=== PATIENT | female | born 1955 | race Caucasian/White ===

== ENCOUNTER 2020-01-17 13:03 | Inpatient (IN) ==
--- NOTE | 2020-01-17 13:14 | Emergency Department Note ---
History of Present Illness General Chief Complaint: Chest Pain Stated Complaint: CHEST PAIN INTO BACK BETWEEN SHOULDERS Time Seen by Provider: 01/17/20 13:08 Source: patient Mode of arrival: ambulatory Limitations: no limitations History of Present Illness Provider Complaint: chest pain Duration: constant Onset: during rest Pain Location: substernal Pain Radiation: back Severity: moderate This is a 54-year-old female who presents to the ED with a chief complaint of a left-sided chest pain that awoke her early this morning around 6 or 7 AM. She describes it as a pressure in her chest that radiates into her back with associated nausea. Denies shortness of breath. She has a history of asthma and is a smoker and history of DVT. The patient states that nothing seems to make it better or worse. She has not taken anything for the symptoms. Current symptoms are moderate. Home Medications Home Medications Medication Instructions Recorded Confirmed Type albuterol sulfate 90 mcg/actuation 2 puffs INH QID PRN #6.7 gm 12/31/19 01/17/20 Rx aerosol inhaler rivaroxaban [Xarelto] 15 ea PO DAILY 01/17/20 01/17/20 History Allergies Allergy/AdvReac Type Severity Reaction Status Date / Time No Known Drug Allergies Allergy Unknown Unverified 01/17/20 13:53 Past Med/Surg History Medical History Asthma Deep vein thrombosis (DVT) of right lower extremity Depression Elevated blood pressure reading in office without diagnosis of hypertension Incidental pulmonary nodule, > 3mm and < 8mm (Inactive) Tobacco abuse Surgical History History of tubal ligation 1980. Family History Father Alcohol abuse Lung cancer Mother Cardiovascular disorder Denies family history of Ovarian cancer Prostate cancer Breast cancer Colorectal cancer Social History Preferred Language: German Communication Ability: Effective Visual Impairment: No Limitations Hearing Ability: Normal Beliefs That Will Affect Care: None marital status: / Current Living Situation: Other Current Living Situation Comment: friend current occupational status: unemployed Feels Safe at Home: Yes Smoking Status: Current every day smoker Tobacco Type: cigarettes ; Age Started Using Tobacco: 21 ; Cigarettes Per Day: 1/2 PPD ; Second Hand Exposure: No ; Hx Alcohol Use: Yes Alcohol Intake Frequency: Rarely Hx Substance Use: No Childhood Exposure to Second-Hand Smoke: No Diet Comment: Well balanced diet. caffeine: Yes (Coffee x 2-4 per day. Soda x 1 per day.) during the past year weight has: increased > 10 lbs Dental Care, Regularly: No Physical Activity Frequency: Other Physical Activity Frequency Comment: Limited by physical condition Seatbelt Use: never Sunscreen Use: No Review of Systems A total of 10 systems reviewed and were otherwise negative Physical Exam Vital Signs Vital Signs - 24 hr 01/17/20 13:07 01/17/20 13:19 01/17/20 13:23 Temperature 36.6 C Temperature Source Oral Pulse Rate 73 68 63 Pulse Rhythm Regular Pulse Strength Normal Respiratory Rate 22 20 18 Respiratory Effort / Characteristics Non-Labored Spontaneous Respiratory Depth Normal Respiratory Pattern Regular Blood Pressure 166/86 H 202/102 H 185/95 H Blood Pressure Mean 112 123 107 Blood Pressure Position Sitting Pulse Oximetry 100 Oxygen Delivery Method Room Air Oxygen Flow Rate Sepsis Recent Fever Within 48 Hours No Sepsis New/Unexplained Change in Mental Status No Sepsis Action Taken by Nursing No Action Required 01/17/20 13:27 01/17/20 13:31 01/17/20 13:40 Temperature Temperature Source Pulse Rate 64 58 L Pulse Rhythm Pulse Strength Respiratory Rate 18 17 Respiratory Effort / Characteristics Respiratory Depth Respiratory Pattern Blood Pressure 183/93 H Blood Pressure Mean 124 Blood Pressure Position Pulse Oximetry Oxygen Delivery Method Room Air Oxygen Flow Rate 99 Sepsis Recent Fever Within 48 Hours Sepsis New/Unexplained Change in Mental Status Sepsis Action Taken by Nursing 01/17/20 13:50 01/17/20 14:00 Temperature Temperature Source Pulse Rate 61 57 L Pulse Rhythm Pulse Strength Respiratory Rate 15 18 Respiratory Effort / Characteristics Respiratory Depth Respiratory Pattern Blood Pressure 169/87 H Blood Pressure Mean 100 Blood Pressure Position Pulse Oximetry Oxygen Delivery Method Oxygen Flow Rate Sepsis Recent Fever Within 48 Hours Sepsis New/Unexplained Change in Mental Status Sepsis Action Taken by Nursing CONSTITUTIONAL/VITAL SIGNS: Reviewed / noted above. GENERAL: Non-toxic in appearance. INTEGUMENTARY: Warm, dry, and [place]. HEAD: Normocephalic. EYES: without scleral icterus or trauma. ENT/OROPHARYNX: clear and moist. LYMPHADENOPATHY/NECK: Is supple without lymphadenopathy or meningismus. RESPIRATORY: Lungs clear and equal. CARDIOVASCULAR: Regular rate and rhythm. GI/ABDOMEN: Soft and nontender. No organomegaly or pulsatile mass. No rebound or guarding. Normal bowel sounds. EXTREMITIES: Warm and well perfused. BACK: No CVA tenderness. NEUROLOGICAL: Intact without focal deficits. PSYCHIATRIC: normal affect. MUSCULOSKELETAL: Normally developed with good muscle tone. TRIAGE NURSING DOCUMENTATION REVIEWED. Course Administered Medications Discontinued Medications Sodium Chloride (Nss) 500 mls @ 999 mls/hr IV .Q31M [facility] Stop: 01/17/20 13:45 Last Admin: 01/17/20 13:28 Dose: 999 mls/hr Documented by: [id number] Medical Decision Making Differential Diagnosis The differential that was considered includes acute myocardial infarction, acute coronary syndrome, myocarditis, pericarditis, pericardial effusions /tamponade, esophageal perforation, thoracic aortic dissection, pulmonary embolism, pneumonia, pneumothorax, pancreatitis, shingles, acute cholecystitis, perforated abdominal viscus. Medical Records Attestation: I reviewed the patient's medical records. Home Medications Current Medication List: was personally reviewed by me Laboratory Data Attestation: I reviewed the patient's lab results. Result diagrams: 01/17/20 13:20 01/17/20 13:20 Labs: Lab Results 01/17/20 01/17/20 01/17/20 Range/Units 13:20 13:20 13:20 WBC 6.64 (4.8-10.8) K/uL RBC 5.13 (4.2-5.4) M/uL Hgb 14.2 (12.0-16.0) g/dL Hct 43.5 (37-47) % MCV 84.8 (80-100) fL MCH 27.7 (25-34) pg MCHC 32.6 (32-36) g/dL RDW Std Deviation 43.3 (36.4-46.3) fL RDW Coeff of Dave 14.0 (11.5-14.5) % Plt Count 233 (130-400) K/uL MPV 9.3 (7.4-10.4) fL Immature Gran % (Auto) 0.2 % Neut % (Auto) 63.9 % Lymph % (Auto) 29.8 % Wilson % (Auto) 3.6 % Eos % (Auto) 2.0 % Baso % (Auto) 0.5 % Immature Gran # (Auto) 0.01 (0.00-0.02) K/uL Neut # (Auto) 4.25 (1.4-6.5) K/uL Lymph # (Auto) 1.98 (1.2-3.4) K/uL Wilson # (Auto) 0.24 (0.11-0.59) K/uL Eos # (Auto) 0.13 (0-0.5) K/uL Baso # (Auto) 0.03 (0-0.2) K/uL PT 11.4 (9.0-12.0) Seconds INR 1.1 (0.9-1.1) APTT 29.6 (21.0-31.0) Seconds PTT Ratio 1.1 D-Dimer < 190 (0-500) ug/L FEU Sodium 139 (136-145) mmol/L Potassium 4.4 (3.5-5.1) mmol/L Chloride 108 H (98-107) mmol/L Carbon Dioxide 26 (21-32) mmol/L Anion Gap 5.0 (3-11) BUN 14 (7-18) mg/dl Creatinine 0.75 (0.6-1.2) mg/dl Est Cr Clr Drug Dosing 60.7 ml/min Est GFR ( Amer) 98.3 Est GFR (Non-Af Amer) 84.8 BUN/Creatinine Ratio 18.4 (10-20) Glucose 100 H (70-99) mg/dl Calcium 9.1 (8.5-10.1) mg/dl Total Bilirubin 0.4 (0.2-1) mg/dl AST 18 (15-37) U/L ALT 22 (12-78) U/L Alkaline Phosphatase 64 (45-117) U/L Troponin I 0.382 H* (0-0.045) ng/ml Total Protein 7.4 (6.4-8.2) gm/dl Albumin 3.8 (3.4-5.0) gm/dl Globulin 3.6 (2.5-4.0) gm/dl Albumin/Globulin Ratio 1.1 (0.9-2) Lipase 101 (73-393) U/L Imaging Data Chest x-ray: Radiologist's impression: XR chest 1V portable CLINICAL HISTORY: Chest Pain dyspnea COMPARISON STUDY: No previous studies for comparison. FINDINGS: The bones soft tissues and hemidiaphragms are normal. The cardi omediastinal silhouette is normal. The lungs are clear. The pulmonary vasculature is normal. Minimal atelectasis left base IMPRESSION: Negative chest. ECG Data Attestation: I personally reviewed and interpreted this ECG as follows: Indication: chest pain and SOB/dyspnea Rate (beats per minute): 73 Rhythm: normal sinus Findings: no PVC, no ST elevation and no prolonged QT Blood Pressure Blood Pressure Findings: Elevated blood pressure Blood Pressure Disposition: further management by hospitalist KARLI Narrative Cardiac monitoring: An order was placed for continuous cardiac monitoring. The monitor shows a rate of 70 with normal sinus rhythm. This is a 54-year-old female who presents to the ED with a chief complaint of a left-sided chest pain that awoke her early this morning around 6 or 7 AM. She describes it as a pressure in her chest that radiates into her back with associated nausea. Denies shortness of breath. She has a history of asthma and is a smoker and history of DVT. The patient states that nothing seems to make it better or worse. She has not taken anything for the symptoms. Current symptoms are moderate. The patient's vital signs reveal hypertension. Her physical exam was normal. A twelve-lead EKG shows normal sinus rhythm at a rate of 73 without acute injury or ectopy. The patient's CBC and chemistry panel was normal. A chest x-ray did not show acute process. Troponin is elevated 0.382. The patient was given aspirin p.o., Lovenox subcu, nitro sublingual and Nitropaste. She will be seen by the hospitalist for further evaluation and care. Impression & Plan Non-ST elevation (NSTEMI) myocardial infarction Discharge Plan Visit Data Chief Complaint: Chest Pain Stated Complaint: CHEST PAIN INTO BACK BETWEEN SHOULDERS ED Provider: Fantasma Larose Discharge Problem: Non-ST elevation (NSTEMI) myocardial infarction Patient Disposition: Being Evaluated by Hospitalist Forms Stand Alone Forms: [employer] Prescriptions Prescriptions: No Action albuterol sulfate [Ventolin HFA] 90 mcg/actuation HFA aerosol inhaler 2 puffs INH QID PRN (Reason: shortness of breath or wheezing) Qty: 6.7 RF: 0 Xarelto 15 mg (42)- 20 mg (9) tablets,dose pack 15 ea PO DAILY RF: 0 Referrals Referrals: Erma Dey DO [Primary Care Provider] -
[2020-01-17] MEDS ORDERED: SODIUM CHLORIDE 0.9% 500 ML IV SCH (13:15)
[2020-01-17 13:40] LABS: Basophils # (auto) 0.03 K/uL (0-0.2); Basophils % (auto) 0.5 %; Eosinophils # (auto) 0.13 K/uL (0-0.5); Hematocrit (blood only) 43.5 % (37-47); Hemoglobin 14.2 g/dL (12.0-16.0); Immature Granulocytes # (auto) 0.01 K/uL (0.00-0.02); Immature Granulocytes % (auto) 0.2 %; Lymphocytes # (auto) 1.98 K/uL (1.2-3.4); Lymphocytes % (auto) 29.8 %; Mean Corpuscular Hemoglobin 27.7 pg (25-34); Mean Corpuscular Hgb Conc 32.6 g/dL (32-36); Mean Corpuscular Volume 84.8 fL (80-100); Mean Platelet Volume 9.3 fL (7.4-10.4); Monocytes # (auto) 0.24 K/uL (0.11-0.59); Monocytes % (auto) 3.6 %; Neutrophils # (auto) 4.25 K/uL (1.4-6.5); Neutrophils % (auto) 63.9 %; Platelet Count 233 K/uL (130-400); RDW Standard Deviation 43.3 fL (36.4-46.3); Red Blood Count 5.13 M/uL (4.2-5.4); White Blood Count 6.64 K/uL (4.8-10.8)
[2020-01-17 13:53] LABS: D Dimer < 190 ug/L FEU (0-500); INR 1.1 (0.9-1.1); Partial Thromboplastin Ratio 1.1; Partial Thromboplastin Time 29.6 Seconds (21.0-31.0); Prothrombin Time 11.4 Seconds (9.0-12.0)
[2020-01-17 13:57] LABS: Albumin Level 3.8 gm/dl (3.4-5.0); BUN Creatinine Ratio 18.4 (10-20); Calcium 9.1 mg/dl (8.5-10.1); Creatinine Clr Calc Pharmacy 60.7 ml/min; Est GFR (African American) 98.3; Est GFR (Non-African American) 84.8; Potassium 4.4 mmol/L (3.5-5.1)
--- NOTE | 2020-01-17 14:00 | XRay Report ---
XR chest 1V portable CLINICAL HISTORY: Chest Pain dyspnea COMPARISON STUDY: No previous studies for comparison. FINDINGS: The bones soft tissues and hemidiaphragms are normal. The cardiomediastinal silhouette is n ormal. The lungs are clear. The pulmonary vasculature is normal. Minimal atelectasis left base IMPRESSION: Negative chest. ACT 112: Negative or not required by law. The above report was generated using voice recognition software. It may contain grammatical, syntax or spelling errors. Electronically signed by: Stepan Miranda M.D. 01/17/2020 1:59 PM
[2020-01-17 14:08] LABS: Albumin Globulin Ratio 1.1 (0.9-2); Bilirubin,Total 0.4 mg/dl (0.2-1); Globulin 3.6 gm/dl (2.5-4.0); Total Protein 7.4 gm/dl (6.4-8.2); Troponin I 0.382 ng/ml (0-0.045)
[2020-01-17] MEDS ORDERED: ASPIRIN 81 MG CHEW PO STA (14:11)
[2020-01-17] MEDS ORDERED: ENOXAPARIN INJ 60 MG/0.6 ML SYR SQ ONE (14:11)
[2020-01-17] MEDS ORDERED: NITROGLYCERIN SL 0.4 MG/TAB TAB SL STA (14:13)
[2020-01-17] MEDS ORDERED: NITROGLYCERIN 2% OINTMENT 30GM TUBE EXT ONE (14:13)
--- NOTE | 2020-01-17 15:08 | History & Physical Report ---
Date of Service January 17, 2020 Assessment & Plan (1) Non-ST elevation (NSTEMI) myocardial infarction: With elevated troponin and abnormal EKG without comparison, suspect patient may have had a non-STEMI. Patient will be admitted to a telemetry bed. Full dose aspirin was given the emergency room. Will start heparin drip. Patient was given Nitropaste. Beta blockers relatively contraindicated secondary to low pulse. Continue to trend troponins. Check 2D echo. We will ask cardiology to evaluate for further recommendations, consideration to cardiac cath. Will make NPO tonight. (2) Deep vein thrombosis (DVT) of right lower extremity: I did review Dopplers, patient has a chronic popliteal DVT along with more distal thrombus. Because of this, there is no need for further full dose anticoagulation for this indication. However, patient is being placed on heparin drip for non-STEMI as noted above. (3) HTN (hypertension): Blood pressure was quite high but this seems to have resolved without in tervention. Continue to monitor, consider further treatment if blood pressure becomes elevated again. (4) Tobacco abuse: Patient will require a discussion of smoking cessation prior to her discharge. History of Present Illness Primary Care Provider: Erma Dey DO This is a 64-year-old female with past medical history of DVT that presents today complaining of chest pain. Patient is accompanied by her and she is a good historian. Patient tells me she was doing fine up until this morning. She woke up around 930 and had a significant crushing chest pain. She said this started in the left side of her chest but moved more substernal. Denies shortness of breath or dyspnea. It radiated to her center back. At the time she qualified it as a 9 out of 10. She denied any abdominal pain with this. There was some mild shortness of breath which was nonpleuritic. She feels the pain has improved significantly since her presentation the emergency room and is now only very minimal. Of note, the patient's blood pressure was extremely elevated during presentation to as high as 202/102. On my evaluation she was 146/80. Also of note, patient had a recent diagnosis of right lower extremity DVT. She had been prescribed Xarelto but was noncompliant with this for period of time secondary to insurance issues. She tells me she has been taking his medication again for the past 2 weeks and took her last dose yesterday morning. Allergies Allergy/AdvReac Type Severity Reaction Status Date / Time No Known Drug Allergies Allergy Unknown Unverified 01/17/20 13:53 Home Medications Home Medications Medication Instructions Recorded Confirmed Type albuterol sulfate 90 mcg/actuation 2 puffs INH QID PRN #6.7 gm 12/31/19 01/17/20 Rx aerosol inhaler rivaroxaban [Xarelto] 15 ea PO DAILY 01/17/20 01/17/20 History Past Med/Surg History Medical History Asthma Deep vein thrombosis (DVT) of right lower extremity Depression Elevated blood pressure reading in office without diagnosis of hypertension Incidental pulmonary nodule, > 3mm and < 8mm (Inactive) Tobacco abuse Surgical History History of tubal ligation 1980. Family History Father Alcohol abuse Lung cancer Mother Cardiovascular disorder Denies family history of Ovarian cancer Prostate cancer Breast cancer Colorectal cancer Social History Preferred Language: Welsh Communication Ability: Effective Visual Impairment: No Limitations Hearing Ability: Normal Beliefs That Will Affect Care: None marital status: / Current Living Situation: Significant Other Current Living Situation Comment: SIGNIFICANT OTHER OF 17 YEARS current occupational status: unemployed Other Information That Helps Us Care for You: No Feels Safe at Home: Yes Safety Concerns: Feels Safe At This Time Smoking Status: Current every day smoker Tobacco Type: cigarettes ; Age Started Using Tobacco: 21 ; Cigarettes Per Day: 20+ ; Second Hand Exposure: No ; Hx Alcohol Use: Yes Alcohol type: beer Alcohol Intake Frequency: Rarely Hx Substance Use: No Childhood Exposure to Second-Hand Smoke: No Diet Comment: Well balanced diet. caffeine: Yes (Coffee x 2-4 per day. Soda x 1 per day.) during the past year weight has: increased > 10 lbs Dental Care, Regularly: No Physical Activity Frequency: Other Physical Activity Frequency Comment: Limited by physical condition Seatbelt Use: never Sunscreen Use: No Review of Systems Constitutional: no fever, no chills, no weakness, no weight loss and no weight gain Eyes: as per Subjective / HPI Respiratory: no cough, no chest congestion, no dyspnea, no dyspnea on exertion and no pain on inspiration Cardiovascular: + chest pain at rest; no orthopnea, no palpitations, no lightheadedness, no syncope, no edema and no calf pain Gastrointestinal: no abdominal pain, no nausea, no vomiting, no constipation and no diarrhea/loose stools Genitourinary: no dysuria, no difficulty urinating, no urinary frequency, no urinary hesitancy, no urinary urgency and no flank pain Musculoskeletal: + back pain; no neck pain, no joint pain, no stiffness and no myalgia Integumentary: no rash Neurologic: no gait abnormality, no unsteadiness, no falls and no generalized weakness Physical Exam Constitutional: + thin and cooperative; no acute distress Neck: trachea midline, no thyromegaly Respiratory: normal respiratory effort Auscultation: lungs clear to auscultation bilaterally; no crackles, no rales, no rhonchi and no wheezes Cardiovascular: Rate/Rhythm: regular rate and regular rhythm Heart Sounds: normal S1 and normal S2; no murmur Vessels: no JVD and no carotid bruit Extremities: no edema Gastrointestinal (Abdomen): Inspection/Auscultation: abdomen normal to inspection Percussion/Palpation: abdomen soft; abdomen nontender, no guarding, abdomen not rigid and no hepatosplenomegaly Musculoskeletal: no cyanosis or clubbing, extremities motor strength 5/5 Skin: no rashes, warm and dry Results & Data Vital Signs (Past 12 Hours) Vital Signs Temp Pulse Resp BP Pulse Ox 01/17/20 14:30 81 19 148/93 H 97 01/17/20 14:00 57 L 18 169/87 H 01/17/20 13:50 61 15 01/17/20 13:40 58 L 17 01/17/20 13:31 64 18 183/93 H 01/17/20 13:23 63 18 185/95 H 01/17/20 13:19 68 20 202/102 H 01/17/20 13:07 36.6 C 73 22 166/86 H 100 Laboratory Results WBCs of 6.6, hemoglobin of 14.2, hematocrit of 43.5, platelet 233. INR is 1.1. Sodium of 139, potassium of 4.4, carbon dioxide of 26, BUN 14 with creatinine 0.75 which is her baseline. Glucose 100. Troponin is 0.382. Lipase 101. EKG reviewed shows normal sinus rhythm with a rate of [address] bpm. There are no ST-T wave changes. Q waves noted in 2 3 aVF. Diagnostic Findings XR chest 1V portable CLINICAL HISTORY: Chest Pain dyspnea COMPARISON STUDY: No previous studies for comparison. FINDINGS: The bones soft tissues and hemidiaphragms are normal. The cardiomediastinal silhouette is normal. The lungs are clear. The pulmonary vasculature is normal. Minimal atelectasis left base IMPRESSION: Negative chest. --- RIGHT LOWER EXTREMITY VENOUS DOPPLER HISTORY: Hx of DVT february 2019 in right leg COMPARISON STUDY: None. FINDINGS: Nearly occlusive thrombus seen within the right popliteal vein as well as the posterior tibial and peroneal veins. The right common femoral and superficial femoral veins are patent. IMPRESSION: Right lower extremity DVT as described above. --- US venous doppler LE BI HISTORY: Pain. Edema. I82.401 Acute embolism and thrombosis of unspecified deep... COMPARISON STUDY: 05/05/2019 FINDINGS: Nonocclusive thrombus within the distal right popliteal vein. This is similar as compared to the prior study. There is also partial involvement of the peroneal and posterior tibial veins. These findings are considered chronic. No evidence for new or interval process. IMPRESSION: 1. No evidence for acute deep venous thrombosis. 2. Chronic deep venous thrombosis as described similar as compared to the prior exam. PG Care Time/CCT Total # of Minutes Spent Total Time Spent with Patient: Total time spent is greater than 50% in coordination of care (as documented) at patient's floor/unit and/or counseling patient: Coding Level of Care Code 09485 Initial Inpt Care Lvl 3 Diagnoses Non-ST elevation (NSTEMI) myocardial infarction I21.4 Deep vein thrombosis (DVT) of right lower extremity I82.401 Affected thrombotic vein of extremity: unspecified vein of extremity Chronicity: unspecified HTN (hypertension) I10 Tobacco abuse Z72.0 (1) Deep vein thrombosis (DVT) of right lower extremity Affected thrombotic vein of extremity: unspecified vein of extremity Chronicity: unspecified Qualified Code(s): I82.401 - Acute embolism and t hrombosis of unspecified deep veins of right lower extremity
[2020-01-17] MEDS ORDERED: ALBUTEROL HFA 8 GM INHALER INH PRN (16:32)
[2020-01-17] MEDS ORDERED: ACETAMINOPHEN 325 MG TAB PO PRN (16:32)
--- NOTE | 2020-01-17 17:57 | Electrocardiogram Report ---
Test Reason : Blood Pressure : / mmHG Vent. Rate : 073 BPM Atrial Rate : 073 BPM P-R Int : 156 ms QRS Dur : 064 ms QT Int : 386 ms P-R-T Axes : 078 066 078 degrees QTc Int : 425 ms Normal sinus rhythm Left atrial enlargement Poor R wave progression, consider anterior [place] vs. lead placement vs. LVH Abnormal ECG When compared with ECG of 05-MAY-2019 00:55, Anterior infarct is now Present Confirmed by Jean-Pierre Farrar ([id number]) on 01/17/2020 5:57:17 PM Referred By: REFERRED SELF Confirmed By:Jean-Pierre Farrar
[2020-01-18] MEDS: HEPARIN SODIUM/DEXTROSE 25,000 UNITS/500 ML BAG IV SCH (02:00)
[2020-01-18] MEDS ORDERED: HEPARIN IV BOLUS 4,000 UNITS in SYRINGE 0 ML IV ONE (02:00)
[2020-01-18 08:42] LABS: Partial Thromboplastin Ratio 4.8
[2020-01-18] MEDS ORDERED: ASPIRIN 325 MG ECTAB PO SCH (09:00)
[2020-01-18] MEDS ORDERED: Nursing to Pharmacy Communication ONE (09:04)
[2020-01-18 10:27] LABS: Partial Thromboplastin Ratio > 5.0
[2020-01-18 10:39] LABS: Partial Thromboplastin Time > 139.0 Seconds (21.0-31.0)
[2020-01-18 11:31] LABS: Partial Thromboplastin Ratio 2.8
[2020-01-18 11:37] LABS: Partial Thromboplastin Time 78.4 Seconds (21.0-31.0)
--- NOTE | 2020-01-18 12:19 | XCELERA ---
[id number] \\[email or web address]\[email or web address]\[id number]
--- NOTE | 2020-01-18 12:21 | Electrocardiogram Report ---
Test Reason : Blood Pressure : / mmHG Vent. Rate : 068 BPM Atrial Rate : 068 BPM P-R Int : 166 ms QRS Dur : 064 ms QT Int : 406 ms P-R-T Axes : 076 056 072 degrees QTc Int : 431 ms Normal sinus rhythm Possible Anterior infarct , age undetermined (cited on or before 17-JAN-2020) Abnormal ECG When compared with ECG of 17-JAN-2020 13:16, No significant change was found Confirmed by Jean-Pierre Farrra ([id number]) on 01/18/2020 12:21:15 PM Referred By: REFERRED SELF Confirmed By:Jean-Pierre Farrar
--- NOTE | 2020-01-18 15:30 | Cardiology Consultation ---
Date of Consultation January 18, 2020 Assessment & Plan (1) Non-ST elevation (NSTEMI) myocardial infarction: (2) HTN (hypertension): (3) Tobacco abuse: (4) Chronic deep vein thrombosis (DVT): Patient with symptoms consistent with acute coronary syndrome, demonstrating elevated enzymes with peak and decay, nonspecific ECG findings (loss of R waves in V2 and V3 without ST abnormalities). No wall motion abnormalities on echo, suggesting limited area of involvement in her apparent non-ST elevation myocardial infarction. Although pulmonary embolism could certainly have been a consideration, her venous findings appear chronic and her d-dimer was negative. Agree with heparinization and aspirin, obtain baseline lipid profile and initiate statin, holding on beta-kimberly with her relative bradycardia at rest and normotensive BP. Patient strongly counseled on the benefits of tobacco cessation in this context. Case discussed with Dr. Dao and Dr. Desai. History of Present Illness Reason for Consultation: NSTEMI Requesting Physician: Paul Aguilera DO Attending Physician: Marco Lee History of Present Illness 64-year-old woman with history of DVT, longstanding tobacco use, otherwise generally healthy, admitted 01/17/2020 with chest pain and found to have peak and decay pattern of elevated troponin (peak 0.766) without diagnostic ECG changes (did have loss of R waves in V2 and V3 compared with the prior study, no acute ST abnormalities). She noted some transient chest discomfort Sunday morning but felt it was not significant. Sunday morning she had more severe pain lasting from 9:30 in the morning till just around the time she arrived here at noon. No chest pain since. Her pain was anterior and nonradiating, non-positional, and nonpleuritic. No associated symptoms. At the time of my evaluation this morning, she noted a vague sense of fatigue, but had no other complaints. Allergies Allergy/AdvReac Type Severity Reaction Status Date / Time No Known Drug Allergies Allergy Unknown Unverified 01/17/20 13:53 Home Medications Home Medications Medication Instructions Recorded Confirmed Type albuterol sulfate 90 mcg/actuation 2 puffs INH QID PRN #6.7 gm 12/31/19 01/17/20 Rx aerosol inhaler rivaroxaban [Xarelto] 15 ea PO DAILY 01/17/20 01/17/20 History Patient History Medical History Asthma Deep vein thrombosis (DVT) of right lower extremity Depression Elevated blood pressure reading in office without diagnosis of hypertension Incidental pulmonary nodule, > 3mm and < 8mm (Inactive) Tobacco abuse Surgical History History of tubal ligation 1980. Family History Alcohol abuse Father Cardiovascular disorder Mother Lung cancer Father Denies family history of Ovarian cancer Prostate cancer Breast cancer Colorectal cancer Social History Preferred Language: Wolof Communication Ability: Effective Visual Impairment: No Limitations Hearing Ability: Normal Beliefs That Will Affect Care: None marital status: / Current Living Situation: Significant Other Current Living Situation Comment: SIGNIFICANT OTHER OF 17 YEARS current occupational status: unemployed Other Information That Helps Us Care for You: No Feels Safe at Home: Yes Safety Concerns: Feels Safe At This Time Smoking Status: Current every day smoker Tobacco Type: cigarettes ; Age Started Using Tobacco: 21 ; Cigarettes Per Day: 20+ ; Second Hand Exposure: No ; Hx Alcohol Use: Yes Alcohol type: beer Alcohol Intake Frequency: Rarely Hx Substance Use: No Childhood Exposure to Second-Hand Smoke: No Diet Comment: Well balanced diet. caffeine: Yes (Coffee x 2-4 per day. Soda x 1 per day.) during the past year weight has: increased > 10 lbs Dental Care, Regularly: No Physical Activity Frequency: Other Physical Activity Frequency Comment: Limited by physical condition Seatbelt Use: never Sunscreen Use: No Review of Systems Constitutional: + fatigue; no fever, no chills, no weight loss and no weight gain Eyes: no problem reported Ear, Nose, Mouth, Throat: no problem reported Respiratory: + cough (Chronic nonproductive smoker's cough.); no dyspnea Cardiovascular: as per Subjective / HPI Gastrointestinal: no abdominal pain and no change in stools Genitourinary: no problem reported Musculoskeletal: no myalgia Integumentary: no rash and no new lesions Neurologic: no falls and no syncope Psychiatric: no problem reported Hematologic / Lymphatic: no easy bleeding and no easy bruising Physical Exam 2 Physical Exam: Middle-aged white female with normal habitus in no distress. Skin with no ecchymoses or generalized lesions. HEENT: Unremarkable neck: Normal jugular venous pulse, no carotid bruits. Lungs: Mildly decreased breath sounds but clear. Cardiac: Regular rhythm normal S1, physiologically split S2, no murmur, rub, or gallop. Abdomen: Soft nontender with no organomegaly or masses. Extremities: no edema, pulses brisk. Neurologic: Normal affect nonfocal. Results & Data ([facility]) Vital Signs (Past 12 Hours) Vital Signs Temp Pulse Pulse Resp BP BP Pulse Ox 01/18/20 11:40 98.2 F 62 18 151/92 H 95 01/18/20 08:00 53 L 01/18/20 07:27 98.1 F 56 L 16 90/52 L 91 Laboratory Results 01/17/20 13:20 D-Dimer < 190 01/17/20 01/17/20 01/18/20 13:20 16:46 00:04 Potassium 4.4 Creatinine 0.75 Troponin I 0.382 H* 0.766 H* 0.426 H* 01/18/20 08:01 Potassium Creatinine Troponin I 0.250 H* Diagnostic Findings Initial ECG showed sinus rhythm with poor R wave progression (minimal R waves in V2 and V3), compared with ECG of 05/05/2019, loss of anterior R waves noted. No ST deviation seen. A second ECG yesterday was similar, no ECG from today. Echocardiogram today showed hyperdynamic left ventricle (EF greater than 70%) with no regional wall motion abnormalities. Trace tricuspid regurgitation with mild pulmonary hypertension. Venous Doppler showed nonocclusive thrombus within the distal right popliteal vein similar to a study from May 2019 and felt to be chronic. Chest x-ray was negative. PG Care Time/CCT Total # of Minutes Spent Total Time Spent with Patient: Total time spent is greater than 50% in coordination of care (as documented) at patient's floor/unit and/or counseling patient: Coding Level of Care Code 11259 Inpt Consult Level 4 Diagnoses Non-ST elevation (NSTEMI) myocardial infarction I21.4 HTN (hypertension) I10 Tobacco abuse Z72.0 Chronic deep vein thrombosis (DVT) I82.509
[2020-01-18 19:39] LABS: Partial Thromboplastin Ratio 2.6
[2020-01-18 20:01] LABS: Partial Thromboplastin Time 71.8 Seconds (21.0-31.0)
--- NOTE | 2020-01-18 21:06 | Hospitalist Progress Note ---
Date of Service January 18, 2020 Assessment & Plan (1) Non-ST elevation (NSTEMI) myocardial infarction: Symptoms, troponin elevation, etc all c/w NSTEMI. Continue heparin drip. Unable to use beta blockers due to bradycardia. Check lipids in am; in meantime start lipitor 40mg daily. Cont asa 81mg daily - can cut dose back from 325mg. Troponin has peaked and already fallen. Echo with preserved EF. NPO after MN tonight for cath in am. Appreciate cardiology consultation. (2) Deep vein thrombosis (DVT) of right lower extremity: Unprovoked DVT - initial dx 05/05/2019. CTA chest w/o PE at that time. Recent dopplers from 12/2019 continue to show chronic DVT. Had been taking xarelto. Etiology of DVT? Could she have occult malignancy? Genetic factor? I recommended cancer screenings after cardiac issues are resolved -- mammogram, colonoscopy, etc. CTA chest in 05/2019 did NOT show pulmonary nodules. Heparin drip for NSTEMI in place; resume xarelto at discharge - can likely go to prophylactic dosing (had been taking 15mg) although I am uncertain of her compliance with her anticoagulation for the first 6 months of Rx. (3) HTN (hypertension): Blood pressures were markedly elevated at presentation. Now low or low-normal. Hold on any BP meds. (4) Tobacco abuse: Margarine Churn Operator to quit. (5) Wheezing: suspect she has underlying COPD given her long smoking history. would advise PFTs post-d/c for dx. start albuterol prn. (6) URI (upper respiratory infection): runny nose, congested today. likely URI. start alphonso BID. start nasocort daily. Admission and Anticipated Discharge Date Admission Date: January 17, 2020 Subjective patient feeling well. no cp, dyspnea, fatigue or VILLAFANA. over the weeks leading up to this admission she had largely been feeling well. 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 had had no limitation in her activity recently. when she was dx with RLE DVT in 2018 an actual cause was never found. no secondary work-up (cancer screenings, etc) pursued. her son had VTE in his early 40s and another family member has had VTE. she is not sure if her son had genetic testing. Review of Systems Constitutional: no fever and no weight loss Respiratory: + dyspnea on exertion (with heavy exertion only) Cardiovascular: no chest pain, no dyspnea at rest, no orthopnea and no paroxysmal nocturnal dyspnea Gastrointestinal: no abdominal pain, no nausea and no vomiting Physical Exam Constitutional: + thin; no acute distress and no altered mental status ENMT: external ear and nose normal, oropharynx normal Nose: + nasal discharge (clear) Respiratory: Auscultation: + wheezes Cardiovascular: Rate/Rhythm: regular rate and regular rhythm Heart Sounds: normal S1 and normal S2; no murmur Vessels: posterior tibial pulses present and dorsalis pedis pulses present; no JVD Extremities: no edema Gastrointestinal (Abdomen): normal bowel sounds, soft, nontender, no hepatosplenomegaly Psychiatric: A+Ox3, euthymic affect Results & Data ([facility]) Vital Signs (Past 12 Hours) Vital Signs Temp Pulse Pulse Resp BP Pulse Ox 01/18/20 19:30 36.9 C 68 14 95/61 L 94 01/18/20 16:00 52 L 01/18/20 15:32 37.0 C 55 L 17 118/66 93 01/18/20 11:40 36.8 C 62 18 151/92 H 95 Laboratory Results Laboratory Results - last 24 hr 01/18/20 01/18/20 01/18/20 00:04 08:01 08:01 APTT PTT Ratio Troponin I 0.426 H* 0.250 H* Hepatitis C Ab Screen Neg 01/18/20 01/18/20 01/18/20 08:01 09:55 10:57 APTT 134.0 H* > 139.0 H* 78.4 H* PTT Ratio 4.8 > 5.0 2.8 Troponin I Hepatitis C Ab Screen 01/18/20 18:58 APTT 71.8 H* PTT Ratio 2.6 Troponin I Hepatitis C Ab Screen PG Care Time/CCT Total # of Minutes Spent Total Time Spent with Patient: Total time spent is greater than 50% in coordination of care (as documented) at patient's floor/unit and/or counseling patient: Coding Level of Care Code 07694 Subseq Hosp Care Lvl 3 Diagnoses Non-ST elevation (NSTEMI) myocardial infarction I21.4 Deep vein thrombosis (DVT) of right lower extremity I82.401 Affected thrombotic vein of extremity: unspecified vein of extremity Chronicity: unspecified HTN (hypertension) I10 Hypertension type: unspecified Tobacco abuse Z72.0 Wheezing R06.2 URI (upper respiratory infection) J06.9 URI type: unspecified viral URI (1) Deep vein thrombosis (DVT) of right lower extremity Affected thrombotic vein of extremity: unspecified vein of extremity Chronicity: unspecified Qualified Code(s): I82.401 - Acute embolism and thrombosis of unspecified deep veins of right lower extremity (2) HTN (hypertension) Hypertension type: unspecified Qualified Code(s): I10 - Essential (primary) hypertension (3) URI (upper respiratory infection) URI type: unspecified viral URI Qualified Code(s): J06.9 - Acute upper respiratory infection, unspecified
[2020-01-18] MEDS ORDERED: ALBUTEROL HFA 8 GM INHALER INH PRN (21:21)
[2020-01-18] MEDS: TRIAMCINOLONE ACET NASAL SPRAY 10.8ML BTL NAE SCH (21:56)
[2020-01-18] MEDS: FEXOFENADINE 60 MG TAB PO SCH (21:56)
[2020-01-18] MEDS ORDERED: COUGH DROP (SUGAR FREE) LOZ 24 LOZ/1 BOX BUCCAL ONE (21:57)
[2020-01-19 03:01] LABS: Partial Thromboplastin Ratio 3.2
[2020-01-19 03:02] LABS: BUN Creatinine Ratio 23.1 (10-20); Calcium 8.3 mg/dl (8.5-10.1); Creatinine Clr Calc Pharmacy 48.4 ml/min; Est GFR (African American) 74.8; Est GFR (Non-African American) 64.6; Potassium 3.8 mmol/L (3.5-5.1)
[2020-01-19 03:13] LABS: Partial Thromboplastin Time 90.5 Seconds (21.0-31.0)
[2020-01-19] MEDS: FEXOFENADINE 60 MG TAB PO SCH (08:39)
[2020-01-19] MEDS: TRIAMCINOLONE ACET NASAL SPRAY 10.8ML BTL NAE SCH (08:41)
[2020-01-19] MEDS ORDERED: ASPIRIN 81 MG ECTAB PO SCH (09:00)
[2020-01-19] MEDS ORDERED: ATORVASTATIN 40 MG TAB PO SCH (09:00)
--- NOTE | 2020-01-19 09:52 | Cardiology Progress Note ---
Date of Service January 19, 2020 Assessment & Plan (1) Non-ST elevation (NSTEMI) myocardial infarction: Mrs. Santos is a 64-year-old female with a history of Chronic DVT, Longstanding Tobacco Use, Asthma, Hypertension, and Dyslipidemia -- who was admitted 01/17/2020 with Anterior Chest Pain lasting approximately 2.5 hours in total and demonstrated elevated Troponin I levels (peaked at 0.766 ng/dl) without diagnostic EKG changes (although did have a loss of R waves in V2 and V3 compared to the prior tracing, no acute ST abnormalities). Subsequent Echocardiogram showed normal LV size, wall motion, and systolic function. Her presentation is consistent with an NSTEMI. Fortunately she has no wall motion abnormalities and normal LV systolic function on her Echocardiogram. Recommend the following: -- Cardiac Catheterization/Coronary Angiography later today. -- Continue Aspirin 81 mg daily. -- Continue Atorvastatin 40 mg daily. -- If CAD is present on cath today, consider adding beta kimberly and ACEI or ARB. -- Heart healthy diet going forward (currently npo for upcoming garrett terization). CARDIOLOGY ATTENDING ADDENDUM (Dr. Farrar): Patient seen, interviewed, and examined. Agree with above assessment by Ruel Jackson PA-C. Patient did undergo cardiac catheterization which showed generally angiographically normal coronaries, with one small area of calcification/atherosclerosis (less than 20% stenosis). Since she is an active smoker (although intending to quit) and now carries a diagnosis of coronary artery disease, recommend the following: -Continue atorvastatin 40 mg daily (regardless of lipid profile) -Would continue aspirin 81 mg daily in the near term (next few months) since her recent cardiac event could have been a transient thrombosis of a small vessel. Likely will reduce or discontinue aspirin longer term given the risk of bleeding with concurrent rivaroxaban use, but feel benefits outweigh risks in the short term. - Initiate amlodipine 2.5 mg daily for possible coronary spasm as well as for use as an antihypertensive (marked BP elevations early in her hospitalization). If she is symptom free and hemodynamically stable post catheterization she can be discharged home. Thank you for allowing us to participate in her care. (2) HTN (hypertension): -- Currently normotensive. -- Strongly encouraged smoking cessation. (3) Tobacco abuse: -- Strongly encouraged smoking cessation. Admission and Anticipated Discharge Date Admission Date: January 17, 2020 Subjective Mrs. Santos is a 64-year-old female with a history of Chronic DVT, Longstanding Tobacco Use, Asthma, Hypertension, and Dyslipidemia -- who was admitted 01/17/2020 with Anterior Chest Pain lasting approximately 2.5 hours in total and demonstrated elevated Troponin I levels (peaked at 0.766 ng/dl) without diagnostic EKG changes (although did have a loss of R waves in V2 and V3 compared to the prior tracing, no acute ST abnormalities). Subsequent Echocardiogram on 01/18/2020 showed normal LV size, wall motion, and systolic function. She was diagnosed with an NSTEMI and is awaiting Cardiac Catheterization later today. Patient offers no complaints today. She specifically denies any chest pain or angina pectoris. She denies any chest heaviness, tightness, pressure, or discomfort. No neck, jaw, back, or arm pain. She denies any SOB, orthopnea, or pnd. No palpitations, syncope, or near syncope. Physical Exam Physical Exam: GENERAL: Patient in no acute distress, lying comfortably in bed. HEENT: Head is atraumatic, normocephalic. EOM's intact. Facies symmetric. No perioral cyanosis. NECK: No JVD. Carotid upstrokes are + 2 bilaterally. No bruits are noted. CHEST/LUNGS: Mildly diminished breath sounds throughout but otherwise clear. No wheezes, rales, or crackles. CVS: S1 and S2 are regular without obvious murmurs, gallops, or rubs. PMI is nondisplaced. No lifts, heaves, or thrills. No abdominal aortic or renal bruits. ABDOMINAL EXAM: Bowel sounds are present. No masses, organomegaly, or tenderness. EXTREMITIES: No clubbing or cyanosis. No edema. Intact posterior tibial and radial pulses bilaterally. NEUROLOGIC EXAM: Patient is awake, alert, and oriented. Pleasant and cooperative. Answers questions appropriately. Speech is clear. TELEMETRY: -- Normal sinus rhythm to sinus bradycardia overnight. Results & Data ([facility]) Vital Signs (Past 12 Hours) Vital Signs Temp Pulse Pulse Resp BP BP Pulse Ox 01/19/20 08:00 54 L 01/19/20 07:06 36.8 C 63 18 117/68 93 01/19/20 03:50 36.7 C 52 L 20 102/66 97 03/15/20 23:08 36.8 C 58 L 18 116/68 96 01/18/20 22:56 52 L Laboratory Results Laboratory Results - last 24 hr 01/18/20 01/18/20 01/18/20 08:01 09:55 10:57 APTT > 139.0 H* 78.4 H* PTT Ratio > 5.0 2.8 Sodium Potassium Chloride Carbon Dioxide Anion Gap BUN Creatinine Est Cr Clr Drug Dosing Est GFR ( Amer) Est GFR (Non-Af Amer) BUN/Creatinine Ratio Glucose Calcium Triglycerides Cholesterol LDL Cholesterol, Calc VLDL Cholesterol, Calc HDL Cholesterol Cholesterol/HDL Ratio Hepatitis C Ab Screen Neg 01/18/20 01/19/20 01/19/20 18:58 02:13 02:13 APTT 71.8 H* 90.5 H* PTT Ratio 2.6 3.2 Sodium 140 Potassium 3.8 Chloride 109 H Carbon Dioxide 27 Anion Gap 4.0 BUN 22 H D Creatinine 0.94 Est Cr Clr Drug Dosing 48.4 Est GFR ( Amer) 74.8 Est GFR (Non-Af Amer) 64.6 BUN/Creatinine Ratio 23.1 H Glucose 79 Calcium 8.3 L Triglycerides 67 Cholesterol 210 H LDL Cholesterol, Calc 116 VLDL Cholesterol, Calc 13 HDL Cholesterol 81 Cholesterol/HDL Ratio 3 Hepatitis C Ab Screen Medications Administered Active Medications Generic Name Dose Route Start Last Admin Trade Name Freq PRN Reason Stop Dose Admin Acetaminophen 650 mg 01/17/20 16:32 Tylenol PO 02/16/20 16:31 Q4H PRN Pain or Fever Albuterol 2 puffs 01/17/20 16:32 Ventolin Hfa INH 02/16/20 16:31 QID PRN shortness of breath or wheezing Albuterol 2 puffs 01/18/20 21:21 Ventolin Hfa INH 02/17/20 21:29 Q6H PRN cough/wheeze Aspirin 81 mg 01/19/20 09:00 01/19/20 08:40 Ecotrin Ectab PO 02/18/20 08:59 Not Given QAM RAKEL Atorvastatin Calcium 40 mg 01/19/20 09:00 01/19/20 08:40 Lipitor PO 02/18/20 08:59 Not Given QAM RAKEL Fexofenadine HCl 60 mg 01/18/20 21:15 01/19/20 08:39 Alexandrea PO 02/17/20 21:14 Not Given BID RAKEL Heparin Sodium/Dextrose 25,000 units in 500 mls @ 12 mls/hr 01/18/20 02:00 01/19/20 07:15 Heparin Sodium/Dextrose IV 02/17/20 01:59 600 units/hr .Q24H RAKEL 12 mls/hr Titration Protocol 600 UNITS/HR Triamcinolone Acetonide 2 sprays 01/18/20 21:10 01/19/20 08:41 Nasacort LISANDRO 02/17/20 21:09 2 sprays DAILY RAKEL Administration PG Care Time/CCT Total # of Minutes Spent Total Time Spent with Patient: Total time spent is greater than 50% in coordination of care (as documented) at patient's floor/unit and/or counseling patient: Coding Level of Care Code 04197 Subseq Hosp Care Lvl 2 Diagnoses Non-ST elevation (NSTEMI) myocardial infarction I21.4 HTN (hypertension) I10 Hypertension type: unspecified Tobacco abuse Z72.0 (1) HTN (hypertension) Hypertension type: unspecified Qualified Code(s): I10 - Essential (primary) hypertension
[2020-01-19 10:27] LABS: Partial Thromboplastin Ratio 2.4
[2020-01-19 10:49] LABS: Partial Thromboplastin Time 66.3 Seconds (21.0-31.0)
[2020-01-19] MEDS: HEPARIN SODIUM/DEXTROSE 25,000 UNITS/500 ML BAG IV SCH (13:23)
[2020-01-19] MEDS ORDERED: MIDAZOLAM HCL 1 MG/ML 2ML VIAL ONE (14:25)
[2020-01-19] MEDS ORDERED: fentaNYL citrate 100 MCG/2 ML VIAL ONE (14:25)
[2020-01-19] MEDS ORDERED: NiCARDipine HCL INJ 2.5 MG/ML 10 ML AMP ONE (14:25)
[2020-01-19] MEDS ORDERED: HEPARIN (PORCINE) 1000 UNIT/ML 10 ML (CATH LAB USE ONLY) ONE (14:25)
[2020-01-19] MEDS ORDERED: NITROGLYCERIN/D5W 100MCG/ML 20ML SYR ONE (14:26)
--- NOTE | 2020-01-19 15:16 | Pre Anesthesia Assessment ---
Date of Service January 19, 2020 Pre Sedation Assessment Vital Signs Temp Pulse Pulse Resp BP BP Pulse Ox 01/19/20 10:58 97.7 F 65 18 130/62 94 01/19/20 08:00 54 L 01/19/20 07:06 98.2 F 63 18 117/68 93 01/19/20 03:50 98.1 F 52 L 20 102/66 97 01/18/20 23:08 98.2 F 58 L 18 116/68 96 01/18/20 22:56 52 L 01/18/20 19:30 98.4 F 68 14 95/61 L 94 01/18/20 16:00 52 L 01/18/20 15:32 98.6 F 55 L 17 118/66 93 Cardiovascular RRR, no murmur, no edema Respiratory normal respiratory effort, lungs clear to auscultation Pre-Sedation Airway Assessment Smoking Status: Smoker, status unknown Hx Sleep Apnea: No Hx Difficult Intubation: No Short, Thick Neck: No Thyromental Distance: > or= 3.5 Finger Breadths Oral Cavity: + WNL Mallampati Class: II ASA: ASA3 NPO Status Date of Last Intake of Fluids: 01/18/20 Time of Last Intake of Fluids: 23:00 Date of Last Intake of Solid Food: 01/18/20 Time of Last Intake of Solid Foods: 23:00 Procedure Planning Contraindications for Sedation: none Current Medications Reviewed: Yes Notes The planned sedation has been discussed with the patient. Informed Consent was obtained. I have identified the patient, determined the appropriateness of sedation and have assessed the patient immediately prior to the procedure. All medicine(s) and interventions are by my order.
--- NOTE | 2020-01-19 15:17 | Post Anesthesia Assessment ---
Date of Service January 19, 2020 Post Sedation Assessment Vital Signs Temp Pulse Pulse Resp BP BP Pulse Ox 01/19/20 10:58 97.7 F 65 18 130/62 94 01/19/20 08:00 54 L 01/19/20 07:06 98.2 F 63 18 117/68 93 01/19/20 03:50 98.1 F 52 L 20 102/66 97 01/18/20 23:08 98.2 F 58 L 18 116/68 96 01/18/20 22:56 52 L 01/18/20 19:30 98.4 F 68 14 95/61 L 94 01/18/20 16:00 52 L 01/18/20 15:32 98.6 F 55 L 17 118/66 93 Recovery Score Activity: Moves 4 extremities Respiration: Deep Breath/Cough Circulation: +/-20% PreAnes Value Consciousness: Fully Awake Oxygen Saturation: O2 needed for >90% Discharge Sedation Level of Care: Fast Track Phase II Post Sedation Plan On clinical assessment, the patient appears to have tolerated the sedation without complications. Patient is recovering as anticipated. Patient will continue to be monitored by nursing and may be discharged when sedation discharge criteria are met per below protocol. Upon Completions of procedure up to 15 minutes continue every 5 minute vital signs and the P.A.R. score; then discharge to a Phase I or Fast Track to Phase II per the following guidelines: * Discharge Patient to appropriate Phase II area if PAR is 8 or greater or return to pre- procedure baseline. The post - procedure orders will be as directed. * If PAR score is less than 8 or not return to pre-procedure baseline then patient will follow Phase I monitoring till PAR is reached for Phase II. The Phase I may be done in procedure room or may call to secure a Phase I area. * If naloxone or flumazenil are used for reversal, hold in Phase I for continued monitoring from when last reversal dose was given for a minimum of 60 minutes or longer pending the nurse and/or physician discretion of patient condition before discharge to Phase II. Please call the Sedation Physician to re-evaluate and complete post-note for discharge to Phase II area. Do NOT discharge from procedure sedation or Phase 1 until post- sedation evaluation note is complete by procedure /sedation MD Sedation Discharge Instructions to be given to the patient at discharge to home.
--- NOTE | 2020-01-19 15:28 | Cardiac Catheterization ---
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 Cardiac Status Clinical evaluation leading to the procedure CAD Presenation: Non STEMI Anginal Classification: CCS IV Heart Failure: No Cardiogenic Shock within 24 Hours: No Cardiac Arrest within 24 Hours: No Imaging Studies Past 6 Months: Yes Stress Studies Past 6 Months: No Diagnostic Physicians Name: Bharat Dao MD Status: Elective Closure Device Percutaneous Entry Location: Radial Closure Device: Radial Band Recommendations: Medical Therapy and/or Counseling Intraprocedure Events Significant Disection: No Perforation: No Cardiac Cath Procedure Full Procedure Date January 19, 2020 Pre-Procedure Diagnosis Pre-Procedure Diagnosis: Non STEMI AUC Score AUC Score: 8 Post-Procedure Diagnosis Post-Procedure Diagnosis: Mild CAD Procedure(s) Performed Procedure(s) Performed: Coronary Angiography and Left Heart Cath Directional Bore Operator Bharat Dao MD Spa Director/Finance(s) [place] Estimated Blood Loss Estimated Blood Loss: 5 Medication(s) Medication(s): Fentanyl, Heparin, Lidocaine 1%, Nicardipine, Nitroglycerin and Versed Summary of Findings Indication: NSTEMI Access: 6 Fr slender right radial artery Catheters: Lolita Findings: LM -medium caliber, angiographically normal LAD -medium caliber, mild, minimally calcified disease in mid segment at bifurcation with first diagonal (<20%), mid to distal vessel very tortuous and tapers to apex. Medium first diagonal tortuous without significant disease. Circumflex -medium caliber, codominant, tortuous, no significant disease. RCA -medium caliber, codominant, angiographically normal LVEDP -4 Arterial Closure: TR band Summary: 1. Tortuous vessels with minimal nonobstructive coronary artery disease 2. Normal intracardiac filling pressure Recommendations: No high risk coronary lesions. Recommend medical management. Suspect troponin elevation secondary to coronary vasospasm versus transient small, branch vessel thrombosis. Stressed smoking cessation Continue statin. Consider adding calcium channel kimberly for vasospasm/hypertension. Continue Xarelto with chronic DVT Hemodynamics Rest Ao:: 136/62/92 Final Ao: 149/67/100 LV: 143/4 Recommendations Recommendations: Medical Therapy and/or Counseling Specimens Specimens: None Radiation Exposure (mGy) 103 Contrast (mls) 45 Fluids (cc crystalloids) Fluids (cc crystalloids): 50 Drains Drains: none Anesthesia moderate Procedural Complication(s) None Disposition PCU I attest to the content of the Intraoperative Record and any orders documented therein. Any exceptions are noted below. [facility] Card Cath Procedure Codes Cardiac Catheterization Procedure 1: Cardiovascular Cath Procedures: 77104 Coronaries and LHC (+/-LV) Moderate Sedation Procedure 1: Sedation/Anesthesia: 00904 Mod Sedation by the same physician;Init15 Min Child Age 5 & Up PG Care Time/CCT Total # of Minutes Spent Total Time Spent with Patient: Total time spent is greater than 50% in coordination of care (as documented) at patient's floor/unit and/or counseling patient:
[2020-01-19] MEDS ORDERED: SODIUM CHLORIDE 0.9% 1000ML 1,000 ML IV SCH (15:30)
--- NOTE | 2020-01-20 13:28 | Discharge Summary ---
Date of Service January 19, 2020 Admission HPI Per Admitting Provider This is a 64-year-old female with past medical history of DVT that presents today complaining of chest pain. Patient is accompanied by her and she is a good historian. Patient tells me she was doing fine up until this morning. She woke up around 930 and had a significant crushing chest pain. She said this started in the left side of her chest but moved more substernal. Denies shortness of breath or dyspnea. It radiated to her center back. At the time she qualified it as a 9 out of 10. She denied any abdominal pain with this. There was some mild shortness of breath which was nonpleuritic. She feels the pain has improved significantly since her presentation the emergency room and is now only very minimal. Of note, the patient's blood pressure was extremely elevated during presentation to as high as 202/102. On my evaluation she was 146/80. Also of note, patient had a recent diagnosis of right lower extremity DVT. She had been prescribed Xarelto but was noncompliant with this for period of time secondary to insurance issues. She tells me she has been taking his medication again for the past 2 weeks and took her last dose yesterday morning. Principal Diagnosis NSTEMI Discharge Exam Constitutional WD/WN, vitals as above + thin Eyes PERRL, conjunctivae normal, anicteric sclerae ENMT external ear and nose normal, oropharynx normal Neck trachea midline, no thyromegaly Respiratory normal respiratory effort, lungs clear to auscultation Cardiovascular RRR, no murmur, no edema Gastrointestinal (Abdomen) normal bowel sounds, soft, nontender, no hepatosplenomegaly Musculoskeletal no cyanosis or clubbing, extremities motor strength 5/5 Skin no rashes, warm and dry Neurologic patellar DTR's 2+ bilat, sensation intact and PERRL, EOMI, accommodation nl, no face palsy, no dysarthria Psychiatric A+Ox3, euthymic affect Lymphatic no cervical or axillary lymphadenopathy Discharge Data Allergies Allergy/AdvReac Type Severity Reaction Status Date / Time No Known Drug Allergies Allergy Unknown Unverified 01/17/20 13:53 Consultations 01/17/20 14:27 ED Decision to Admit Stat 01/17/20 16:32 Consult Cardiology Routine Procedures Performed Operation Date: 01/19/20 12:30 Actual Procedures s Cineradiography w/Routine Exam - Jerad Dao MD p Cath, Left with Cors and Vent - Jerad Dao MD Ordered Studies 01/19/20 12:30 CL Cath Imgs for PACS use only Routine Hospital Course (1) Non-ST elevation (NSTEMI) myocardial infarction: Symptoms, troponin elevation, etc all c/w NSTEMI. treated over the weekend with heparin drip. Unable to use beta blockers due to bradycardia. lipid panel with cholesterol 210, LDL 116 and HDL 81 cardiology recommends starting Lipitor Cont asa 81mg daily - can cut dose back from 325mg. Troponin peaked and then fell quickly Echo with preserved EF. left heart cath on day of discharge, mild disease thought that maybe she suffered coronary vasospasm that caused the NSTEMI cardiology recommends Norvasc 2.5mg daily follow up with Ruel Jackson in the office (2) Deep vein thrombosis (DVT) of right lower extremity: Unprovoked DVT - initial dx 05/05/2019. CTA chest w/o PE at that time. Recent dopplers from 12/2019 continue to show chronic DVT. Had been taking xarelto. Etiology of DVT? Could she have occult malignancy? Genetic factor? recommended cancer screenings after cardiac issues are resolved -- mammogram, colonoscopy, etc. CTA chest in 05/2019 did NOT show pulmonary nodules. Heparin drip for NSTEMI in place; resume xarelto at discharge - can likely go to prophylactic dosing (had been taking 15mg) although I am uncertain of her compliance with her anticoagulation for the first 6 months of Rx. (3) HTN (hypertension): Blood pressures were markedly elevated at presentation. Now low or low-normal. will use Norvasc 2.5mg daily for possible vasospasm (4) Tobacco abuse: Manager Site to quit. (5) Wheezing: suspect she has underlying COPD given her long smoking history. would advise PFTs post-d/c for dx. start albuterol prn. (6) URI (upper respiratory infection): runny nose, congested today. likely URI. start alphonso BID. start nasocort daily. Total Time Total Time Spent Total Time Spent (In Minutes): 33 minutes Total Time Includes: Examination of the Patient, Discharge Planning, Medication Reconciliation and Communication With Other Providers (Dr. 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 Spoke with Agapito in scheduling) Erma Dey DO [Primary Care Provider] - 01/26/20 9:20 am (Sunday @ 9:[address] Dey Spoke with Huyen in scheduling.) Diet: Heart Healthy Addtl Attending Provider Instructions: Medications: - ASPIRIN: 81mg daily for time being, may stop after a few months - LIPITOR: 40mg daily to plaque stabilization - AMLODIPINE: 2.5mg daily, added by cardiology for potential vasospasm - FEXOFINADINE and NASOCORT: use as prescribed to treat nasal congestion/allergies Coronary disease, minimal disease found on cath no stent needed, treat medically with Lipitor, Aspirin, Amlodipine follow up with cardiology in one month Pending Studies at Discharge: No Stand-Alone Forms: My PushCall, Smoking Cessation Medications and DC Order Prescriptions: New atorvastatin 40 mg Tablet 40 mg PO QAM 30 Days Qty: 30 RF: 3 aspirin 81 mg Tablet,Delayed Release (Dr/Ec) 81 mg PO QAM 30 Days Qty: 30 RF: 3 triamcinolone acetonide [Nasacort] 55 mcg Aerosol,Velma 2 spray LISANDRO DAILY 7 Days Qty: 10.8 RF: 0 fexofenadine 60 mg Tablet 60 mg PO BID 30 Days Qty: 60 RF: 0 amlodipine 2.5 mg tablet 2.5 mg PO DAILY Qty: 30 RF: 3 Continued albuterol sulfate [Ventolin HFA] 90 mcg/actuation HFA aerosol inhaler 2 puffs INH QID PRN (Reason: shortness of breath or wheezing) Qty: 6.7 RF: 0 Xarelto 15 mg (42)- 20 mg (9) tablets,dose pack 15 ea PO DAILY RF: 0 Discharge Orders: Discharge Order (Routine); Ordered 01/19/20 Ordered By: Orlando Walton Admission Data Admit Date/Time: 01/17/20 15:17 Attending Provider: Orlando Walton Admit Provider: Paul Aguilera Primary Care Provider: Erma Dye Other Providers: Jean-Pierre Farrar Other Interventions: Discharge Summary Assessment (RN) Last Done: 01/19/20 18:38 DC Date/Time DO NOT enter until pt leaves facility: 01/19/20 18:57 Coding Level of Care Code D/C Day Management >30 mins Diagnoses Non-ST elevation (NSTEMI) myocardial infarction I21.4 Deep vein thrombosis (DVT) of right lower extremity I82.401 Affected thrombotic vein of extremity: unspecified vein of extremity Chronicity: unspecified HTN (hypertension) I10 Hypertension type: unspecified Tobacco abuse Z72.0 Wheezing R06.2 URI (upper respiratory infection) J06.9 URI type: unspecified viral URI
== END 2020-01-19 18:57 | disposition home or self-care (01) | DRG 282 ==
LOC: ED 13:03 → 2S 15:17 → SUATTDRO 15:17 → 2S 15:34